=== PATIENT | female | born 2005 | race African-American/Black ===

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

== ENCOUNTER 2025-02-07 11:17 | Emergency (ER) | payer OTHER, SELFPAY ==
--- NOTE | ~2025-02-07 | CT_ITS ---
EXAMINATION: CT abdomen pelvis w con DATE: 02/07/2025 12:22 INDICATION: Abdominal pain TECHNIQUE: Computed tomography (CT) of the abdomen and pelvis was performed with 100 mL Omnipaque-350 intravenous contrast. The dose Wale The dose-length product was 211.01 mGy-cm. COMPARISON: 10/21/2022 FINDINGS: Lung bases are clear. Large inferior heart is normal. No pericardial or pleural effusion. No interval change in a geographic region of focal hepatic steatosis along the ligamentum teres. Gallbladder, sp joanne, pancreas, bilateral adrenal glands and kidneys are normal. Normal appendix. Again seen is diffu se mild fatty infiltration of the colonic wall likely related to body habitus. Bowels are otherwise u nremarkable no obstruction. 2.4 cm right adnexal cyst/dominant follicle. Left adnexa, anteverted uter us and partially decompressed bladder are normal. Minimal likely physiologic free fluid at the cul-de -sac. No abscess or free intraperitoneal gas. No pathologically enlarged abdominal or pelvic lymphade nopathy. Mild lumbar levocurvature. IMPRESSION: 1. 2.4 cm right adnexal cyst/dominant follicle and minimal amount of likely physiologic free fluid in the cul-de-sac. No other acute intra-abdominal/pelvic process. Reviewed, dictated and finalized at location A. IMPRESSION: 1. 2.4 cm right adnexal cyst/dominant follicle and minimal amount of likely phy siologic free fluid in the cul-de-sac. No other acute intra-abdominal/pelvic pr ocess.
--- NOTE | ~2025-02-07 | XR_ITS ---
EXAMINATION: XR chest 1V portable 02/07/2025 12:23 INDICATION: Abdominal pain PROCEDURE: AP view of the chest COMPARISON: FINDINGS: The lungs are clear. The cardiomediastinal silhouette is within normal limits. There are no pleural effusions. There is no pneumothorax suspected. IMPRESSION: 1: NO ACUTE CARDIOPULMONARY DISEASE. Reviewed, dictated and finalized at location A.
--- NOTE | 2025-02-07 11:19 | ECG_ITS ---
Test Date: 2025-02-07 11:42:08 Measurements Intervals [place] Rate: 70 P: 80 [place]: 127 QRS: 85 QRSD: 80 T: 58 QT: 366 QTc: 396 Interpretive Statements SINUS RHYTHM NORMAL ECG No previous ECG available for comparison Electronically Signed On 02-07-2025 12:32:09 CDT by Jose Maxwell D.O.
[2025-02-07 11:21] VITALS: BP 119/72; PULSE 82; RESP 16; TEMP 36.9; O2SAT 98
--- OUTSIDE RECORDS SUMMARY | 2025-02-07 11:36 | XMS_ITS | Clinical Summary ---
Author Organization [facility] Address [address] [place] [id number] Care Team Providers Care Forwarder Operator Name Role Phone Cathy Manning MD Primary Care Provider [phone]- [phone] Allergies No known active allergies Medications ondansetron (ZOFRAN-ODT) 4 MG disintegrating tablet TAKE 4 MILLIGRAMS ORAL NEEDED TWICE A DAY Active Active Problems Comments Yes No known active problems Family History Medical History Relation Comments No Known Problems Father Hypertension Mother Thyroid Disease Mother Relation Status Comments Father Mother Alive Social History Tobacco Use Types Packs/Day Years Used Date Smoking Tobacco: Never Smokeless Tobacco: Never Tobacco Cessation:Counseling Given: Not Answered Alcohol Use Standard Drinks/Week Comments Never 0 (1 standard drink = 0.6 oz pur e alcohol) Comments Yes Sex and Gender Information Value Date Recorded Sex Assigned at Female 08/26/2024 2:37 PM FARM APPRAISER Legal Sex Female 5:58 PM FARM APPRAISER Gender Identity Not on file Sexual Orientation Not on file Last Filed Vital Signs Vital Sign Reading Time Taken Comments Blood Pressure 127/79 08/26/2024 6:05 PM FARM APPRAISER Pulse 94 08/26/2024 2:25 PM FARM APPRAISER Temperature 36.7 C (98 F) 08/26/2024 2:25 PM FARM APPRAISER Respiratory Rate 16 08/26/2024 2:25 PM FARM APPRAISER Oxygen Saturation 100% 08/26/2024 6:10 PM FARM APPRAISER Inhaled Oxygen Concentration - - Weight 66 kg (145 lb 9.6 oz) 08/26/2024 2:25 PM FARM APPRAISER Height 162.6 cm (5' 4) 08/26/2024 2:25 PM FARM APPRAISER Body Mass Index 24.99 08/26/2024 2:25 PM FARM APPRAISER Plan of Treatment Health Maintenance Due Date Last Done Comments Annual Physical 2007 Chlamydia Screening Females ages 16-24 2020 Meningococcal B Vaccine (1 of 2 - Standard) 2020 Hepatitis C 2022 COVID-19 Vaccine (2 - season) 2024 07/04/2021 DTaP, Tdap and Td Vaccines (6 - Td or Tdap) 01/20/2026 01/21/2016, 04/19/2007, 07/02/2005, Additional history exists RSV Immunization or 60+ Years (1 - 1-dose 75+ series) 2079 Hepatitis B Vaccines Completed 04/19/2007, 2004, 2004, Additional history exists Pneumococcal Vaccine: Pediatrics (0 to 5 Years) and At-Risk Patients (6 to 49 Years) Aged Out 04/19/2007, 07/02/2005, 01/29/2005, Additional history exists No longer eligible based on patient's age to complete this topic Meningococcal Vaccine Aged Out 01/21/2016 No kedar víctor eligible based on patient's age to complete this topic HPV Vaccines Completed 09/29/2016, 01/21/2016 RSV Immunizations Under 20 Months Aged Out No longer eligible based on patient's age to complete this topic Insurance Care Teams Forwarder Operator Relationship Specialty Start Date End Date Cathy Manning MD [address] [place] [phone] PCP - General FAMILY PRACTICE 08/26/24
[2025-02-07 11:47] LABS: Hematocrit 37.4 % (35.0-49.0); Hemoglobin 12.7 g/dL (12.0-15.0); Immature Granulocyte Percent A 0.4 % (0.0-0.0); Lymphocytes Absolute Auto 2.52 K/mm3 (1.10-4.50); Mean Corpuscular HGB Conc 34.0 g/dL (32-36); Mean Corpuscular Hemoglobin 28.9 pg (27.0-31.0); Mean Corpuscular Volume 85.0 fL (78.0-102.0); Nucleated Red Blood Cells Absolute Auto 0.00 K/mm3 (0.00-0.00); Nucleated Red Blood Cells Perc 0.0 % (0-0.0); Platelet Count Result 383 K/mm3 (150-420); Red Blood Count 4.40 M/mm3 (4.20-5.40); White Blood Count 17.0 K/mm3 (4.8-10.8)
[2025-02-07 11:57] LABS: Alanine Aminotransferase 12 U/L (6-35); Albumin Level 4.0 g/dL (3.5-5.1); Alkaline Phosphatase 60 U/L (38-126); Anion Gap 4 mmol/L (4-12); Aspartate Amino Transferase 19 U/L (14-36); Bilirubin,Total 0.5 mg/dL (0.2-1.3); Blood Urea Nitrogen 6 mg/dL (7-17); Calcium 9.0 mg/dL (8.4-10.2); Carbon Dioxide 26 mmol/L (22-30); Chloride 108 mmol/L (98-107); Estimated CRCL calculation 137 ml/min; Estimated Glomerular Filt Rate > 60; Glucose 102 mg/dL (65-110); Lipase 39 U/L (23-300); Osmolality Calculated 283 mOsm/kg (285-295); Potassium 3.8 mmol/L (3.4-5.0); Sodium 138 mmol/L (137-145); Total Protein 6.5 g/dL (6.3-8.2)
[2025-02-07 12:00] LABS: INR 0.9; Partial Thromboplastin Time 25.2 Sec (23.9-30.70); Prothrombin Time 10.3 Seconds (9.50-12.1)
[2025-02-07 12:01] LABS: Add Urine Microscopic? NO; Appearance Urine Clear (Clear); Glucose Urine UA Negative (Negative); Leukocyte Esterase Ur Negative LEU/UL (Negative); Nitrate Urine Negative (Negative); Specific Grav Ur 1.015 (1.010-1.020)
--- OUTSIDE RECORDS SUMMARY | 2025-02-07 12:02 | XMS_ITS | Clinical Summary ---
Author Organization [facility] Address [address] [place] [id number] Care Team Providers Care Terminal Supervisor Name Role Phone Cathy Manning MD Primary Care Provider +1- [phone] Allergies No known active allergies Medications ondansetron [...] Sex Assigned at Female 08/26/2024 2:37 PM STRESS ENGINEER Legal Sex Female 5:58 PM STRESS ENGINEER Gender Identity Not on file Sexual Orientation Not on file Last Filed Vital Signs Vital Sign Reading Time Taken Comments Blood Pressure 127/79 08/26/2024 6:05 PM STRESS ENGINEER Pulse 94 08/26/2024 2:25 PM STRESS ENGINEER Temperature 36.7 C (98 F) 08/26/2024 2:25 PM STRESS ENGINEER Respiratory Rate 16 08/26/2024 2:25 PM STRESS ENGINEER Oxygen Saturation 100% 08/26/2024 6:10 PM STRESS ENGINEER Inhaled Oxygen Concentration - - Weight 66 kg (145 lb 9.6 oz) 08/26/2024 2:25 PM STRESS ENGINEER Height 162.6 cm (5' 4) 08/26/2024 2:25 PM STRESS ENGINEER Body Mass Index 24.99 08/26/2024 2:25 PM STRESS ENGINEER Plan of Treatment Health Maintenance Due Date [...] to complete this topic Insurance Care Teams Terminal Supervisor Relationship Specialty Start Date End Date Cathy Manning MD [address] [place] [phone] PCP - General FAMILY PRACTICE 08/26/24
[2025-02-07 12:05] LABS: Pregnancy On Board Control Positive
[2025-02-07 12:09] LABS: Troponin I < 0.012 ng/mL (0.000-0.034)
[2025-02-07] MEDS: KETOROLAC 30 MG/ML VIAL (*BKC) IV PUSH (12:29)
[2025-02-07] MEDS: SODIUM CHLORIDE 0.9% IV 1,000 ML 999 ML IV CONT (12:29)
[2025-02-07] MEDS: ONDANSETRON INJ 4 MG/2 ML VIAL IV PUSH (12:29)
--- NOTE | 2025-02-07 12:53 | ED_ITS ---
HPI - Abdominal Pain General Chief Complaint: Abdominal Pain Stated Complaint: abdominal pain Time Seen by Provider: 02/07/25 11:19 Source: patient and EMS Mode of arrival: ambulatory Limitations: no limitations History of Present Illness HPI narrative: this is a 19-year-old female with no significant past medical history that presents with abdominal pain via EMS with some nausea with no diarrhea constipation no flank pain no dysuria no chest pain no shortness of breath no fever chills. Pain started yesterday and has been off and on/intermittent since then. MD elicited complaint: abdominal pain Pertinent past history: none Onset (ago): day(s) Pain Consistency: intermittent Location: diffuse Severity: moderate Pain scale (0-10): 6 Quality: aching Migration to: no migration Exacerbating factors: nothing Relieving factors: nothing Related Data Allergies Allergy/AdvReac Type Severity Reaction Status Date / Time No Known Allergies Allergy Verified 10/21/22 18:56 Review of Systems 2 Review of Systems: All systems reviewed & are unremarkable except as noted in HPI and below PMFSH Past Medical History Medical History Patient denies medical problems Exam 2 Const: General: healthy appearing and no acute distress Nutritional Appearance: well nourished Orientation/consciousness: patient oriented x3 Limitations: no limitations Neck: Neck: normal visual inspection and no lymphadenopathy Chest: Chest palpation & inspection: normal inspection of the chest Resp: Effort & Inspection: normal respiratory effort Auscultation: clear to auscultation bilaterally Cardio: Rate: regular rate Rhythm: regular rhythm GI: GI Palp: Yes Soft to palpation and Yes Tenderness to palpation present (GI) Auscultation: normal bowel sounds : General: Yes bladder normal to palpation Urinary Catheter: Urinary Catheter: patent and draining Skin: General skin exam: normal color Rashes: no rashes Neuro: General: patient oriented x3, moves all extremities, no meningeal signs and no focal motor deficits Extrem: General: normal to inspection and no clubbing, cyanosis or edema Psych: Mental Status: mental status grossly normal Course Course Emergency Course: She had blood work that was essentially within normal range, chest x-ray no acute cardiopulmonary abnormality CT scan shows some follicular cyst with physiological fluid. Patient received Toradol, IV fluids and IV Zofran and after reassess patient symptoms have improved. Vital Signs Vital signs: Vital Signs Temperature 36.9 C 02/07/25 11:21 Pulse Rate 82 02/07/25 11:21 Respiratory Rate 16 02/07/25 11:21 Blood Pressure 119/72 02/07/25 11:21 Pulse Oximetry 98 02/07/25 11:21 Oxygen Delivery Room Air 02/07/25 11:21 Temperature 36.9 C 02/07/25 11:21 Pulse Rate 82 02/07/25 11:21 Respiratory Rate 16 02/07/25 11:21 Blood Pressure 119/72 02/07/25 11:21 Pulse Oximetry 98 02/07/25 11:21 Oxygen Delivery Room Air 02/07/25 11:21 MDM - Abdominal Pain Lab Data 02/07/25 11:34 02/07/25 11:34 Labs: Lab Results 02/07/25 02/07/25 Range/Units 11:34 11:57 WBC 17.0 H (4.8-10.8) K/mm3 RBC 4.40 (4.20-5.40) M/mm3 Hgb 12.7 (12.0-15.0) g/dL Hct 37.4 (35.0-49.0) % MCV 85.0 (78.0-102.0) fL MCH 28.9 (27.0-31.0) pg MCHC 34.0 (32-36) g/dL RDW 13.8 (11.6-14.4) % Plt Count 383 (150-420) K/mm3 MPV 10.1 (9.2-11.8) fl Immature Gran % (Auto) 0.4 H (0.0-0.0) % Neut % (Auto) 78.1 H (50.0-70.0) % Lymph % (Auto) 14.8 L (18.0-42.0) % Dickson % (Auto) 4.5 (2.0-11.0) % Eos % (Auto) 1.6 (1.0-6.0) % Baso % (Auto) 0.6 (0.0-1.0) % Lymph # (Auto) 2.52 (1.10-4.50) K/mm3 Dickson # (Auto) 0.76 (0.10-0.90) K/mm3 Eos # (Auto) 0.27 (0.02-0.50) K/mm3 Baso # (Auto) 0.10 (0.00-0.10) K/mm3 Abs Immat Gran (auto) 0.06 H (0.00-0.00) K/mm3 Absolute Neuts (auto) 13.26 H (1.70-7.20) K/mm3 Absolute Nucleated RBC 0.00 (0.00-0.00) K/mm3 Nucleated RBC % 0.0 (0-0.0) % PT 10.3 (9.50-12.1) Seconds INR 0.9 APTT 25.2 (23.9-30.70) Sec Sodium 138 (137-145) mmol/L Potassium 3.8 (3.4-5.0) mmol/L Chloride 108 H (98-107) mmol/L Carbon Dioxide 26 (22-30) mmol/L Anion Gap 4 (4-12) mmol/L BUN 6 L (7-17) mg/dL Creatinine 0.47 L (0.7-1.0) mg/dL Estim Creat Clear Calc 137 ml/min Estimated GFR > 60 (59 - ) Glucose 102 (65-110) mg/dL Calculated Osmolality 283 L (285-295) mOsm/kg Lactic Acid 0.8 (0.4-2.0) mmol/L Calcium 9.0 (8.4-10.2) mg/dL Total Bilirubin 0.5 (0.2-1.3) mg/dL AST 19 (14-36) U/L ALT 12 (6-35) U/L Alkaline Phosphatase 60 (38-126) U/L Troponin I < 0.012 (0.000-0.034) ng/mL Total Protein 6.5 (6.3-8.2) g/dL Albumin 4.0 (3.5-5.1) g/dL Lipase 39 (23-300) U/L Urine Color Light yellow (Yellow) Urine Appearance Clear (Clear) Urine pH 7.5 (5.0-8.0) Ur Specific Frank[place]muth 1.015 (1.010-1.020) Urine Protein Negative (Negative) Urine Glucose (UA) Negative (Negative) Urine Ketones Negative (Negative) Ur Blood (Man) Negative (Negative) Urine Nitrate Negative (Negative) Urine Bilirubin Negative (Negative) Urine Urobilinogen 0.2 (0.2-1.0) mg/dL Leukocyte Esterase Rfl Negative (Negative) OWEN/UL Urine Test Negative Imaging Data Radiologist's impression: ITS Impressions Abdomen/Pelvis CT 02/07/25 12:27 IMPRESSION: 1. 2.4 cm right adnexal cyst/dominant follicle and minimal amount of likely physiologic free fluid in the cul-de-sac. No other acute intra-abdominal/pelvic process. Chest X-Ray 02/07/25 12:32 IMPRESSION: 1: NO ACUTE CARDIOPULMONARY DISEASE. Critical Care Time Critical Care Time Critical Care Time: No Discharge Plan Discharge Clinical Impression: Ovarian cyst Qualifiers: Laterality: unspecified laterality Qualified Code(s): N83.209 - Unspecified ovarian cyst, unspecified side Patient Disposition: Home Condition: Stable Instructions: Antibiotic Form, Ruptured Ovarian Cyst (ED) Additional Instructions: advised patient to take medication as prescribed and to follow with primary within the next 3 to 5 days for further evaluation and treatment. Patient Language: Mongolian Prescriptions: New naproxen 500 mg tablet 500 mg PO BID PRN (Reason: pain) Qty: 14 0RF ondansetron 4 mg tablet,disintegrating 4 mg PO Q6H PRN (Reason: nausea and vomiting) Qty: 14 0RF Follow-up/Referrals: Kerri,Cathy Morales MD [Primary Care Provider] - Time of Disposition: 12:57
[2025-02-07 13:08] VITALS: BP 123/68; PULSE 62; RESP 18; TEMP 36.1; O2SAT 100
--- NOTE | 2025-02-09 05:10 | PC.NURSE ---
Spoke with Nataliia (slab lifting engineer), stated that patient blood cultures 1 of 2 bottles positive for gram positive cocci- aerobic bottle. Spoke with Dr. Burk about patient positive blood culture, states to wait until results finalize before any further treatment as it sounds that this may be a contaminate.
--- NOTE | 2025-02-10 12:29 | PC.NURSE ---
Preliminary blood culture report; gram positive cocci, will wait for final culture and sensitivity per ERP Dr. Gann.
--- NOTE | 2025-02-11 13:46 | PC.NURSE ---
BLOOD CULTURE PRELIMINARY RESULT: STAPHYLOCOCCUS EPIDERMIDIS - final results pending
--- NOTE | 2025-02-12 13:11 | PC.NURSE ---
preliminary blood cultures reviewed. staph epidermidis isolated in aerobic bottle only
--- NOTE | 2025-02-13 13:05 | PC.NURSE ---
right hand blood culture reviewed, staph epidermidis.
--- NOTE | 2025-02-13 18:56 | PC.NURSE ---
blood culture reviewed per dr padilla, follow up with family doctor, no antibiotic needed, attempted to call spouse number on facesheet as that is the only number available. states unknown how to contact pt. does not speak to her.
== END 2025-02-07 13:11 | disposition home or self-care (01) ==
PROVIDERS: Emergency Provider Emergency Medicine; PCP Family Medicine
DX: N83.209 Unspecified ovarian cyst, unspecified side (principal)
CPT/HCPCS: 36415; 71045; 74177; 80053; 81003; 81025; 83605; 83690; 84484; 85025; 85610; 85730; 87040; 87186; 93005; 96361; 96374; 96375; 99284; J1885; J2405; J7030; Q9967

== ENCOUNTER 2025-05-17 10:25 | Emergency (ER) | payer SELFPAY ==
[2025-05-17] VITALS (14 sets, daily range): BP systolic 112–130; BP diastolic 80–92; PULSE 72–107; RESP 16–20; TEMP 36.9; O2SAT 96–100
--- NOTE | ~2025-05-17 | XR_ITS ---
EXAMINATION: XR abdomen obstructive series DATE: 05/17/2025 11:57 INDICATION: Abdominal pain and constipation TECHNIQUE: Frontal supine and upright views of the abdomen were obtained. COMPARISON: None. FINDINGS: Small amount of stool scattered throughout the colon. No dilated loops of gas- filled bowel to suggest obstruction. No suspicious calcifications in the abdomen or pelvis. No free intraperitoneal gas. Visualized lung bases are clear. Heart size is normal. Mild lumbar levocurvature. IMPRESSION: 1. No free intraperitoneal gas or dilated gas-filled loops of bowel to suggest obstruction. Reviewed, dictated and finalized at location A. R FABRICATOR
--- NOTE | 2025-05-17 10:26 | ED.ABDPAIN ---
HPI - Abdominal Pain General Chief Complaint: Abdominal Pain Stated Complaint: abdominal pain Time Seen by Provider: 05/17/25 10:26 Source: patient Mode of arrival: ambulatory Limitations: no limitations History of Present Illness HPI narrative: Patient is a 19-year-old female with abdominal pain throughout the abdomen and has been constipated for the past 3 days. MD elicited complaint: abdominal pain Pertinent past history: constipation Onset (ago): day(s) (Three) Pain Consistency: intermittent Location: diffuse Severity: mild Pain scale (0-10): 2 Quality: cramping Radiation: none Migration to: no migration Exacerbating factors: nothing Relieving factors: nothing Context: confirms other (Patient has been constipated for the past 3 days and having some associated abdominal pain and occasional nausea) Associated symptoms: nausea and constipation Treatments prior to arrival: other (None) Related Data Allergies Allergy/AdvReac Type Severity Reaction Status Date / Time No Known Allergies Allergy Verified 10/21/22 18:56 Review of Systems Review of Systems: All systems reviewed & are unremarkable except as noted in HPI and below Constitutional: Constitutional: Reports no additional constitutional complaints Eyes: Eyes: Reports no additional eye complaints ENT: Reports system reviewed and no additional complaints, except as documented Cardiovascular: Cardiovascular: Reports no additional cardiovascular complaints Respiratory: Respiratory: Reports no additional respiratory complaints Gastrointestinal: Gastrointestinal: Reports no additional gastrointestinal complaints Genitourinary: Genitourinary: Reports no additional female genitourinary complaints Musculoskeletal: Musculoskeletal: Reports no additional musculoskeletal complaints Integumentary/Breasts: Skin/Breast: Reports system reviewed and no additional complaints, except as docu Neurologic: Reports system reviewed and no additional complaints, except as documented Psychiatric: Psychiatric: Reports no additional psychiatric complaints Endocrine: Endocrine: Reports no additional endocrine complaints Hematologic/Lymphatic: Hematologic/Lymphatic: Reports no additional hematologic/lymphatic complaints Allergic/Immunologic: Allergic/Immunologic: Reports no additional allergic/immunologic complaints PMFSH Past Medical History Medical History Patient denies medical problems Exam Const: General: healthy appearing Nutritional Appearance: well nourished Orientation/consciousness: patient oriented x3 HENMT: Head: normal to inspection Ears: external ears normal Face/Nose/Sinus: Normal external nose present Eyes: Conjunctivae: conjunctivae normal Pupils: Equal, round and reactive pupils present EOM: EOMs intact bilaterally Neck: Neck: normal visual inspection Chest: Chest palpation & inspection: normal inspection of the chest Resp: Effort & Inspection: normal respiratory effort and not labored Auscultation: clear to auscultation bilaterally and no crackles Cardio: Rate: regular rate Rhythm: regular rhythm Heart sounds: no murmurs GI: Inspection: distended GI Palp: Yes Soft to palpation, Yes Tenderness to palpation present (GI) (Diffuse), No Guarding due to palpation present (GI), No Rigid due to palpation, No Hernia present, No Palpable mass present and No Rebound tenderness present Auscultation: Hypoactive bowel sounds present : General: Yes bladder normal to palpation Back/Spine/Pelvis: Back: no CVA tenderness Skin: General skin exam: normal color Rashes: no rashes Wounds: no wounds Neuro: General: patient oriented x3, moves all extremities and no meningeal signs Extrem: General: normal to inspection, no clubbing, cyanosis or edema and no pedal edema Psych: Mental Status: mental status grossly normal Affect: normal affect Attitude: cooperative Course Vital Signs Vital signs: Vital Signs Temperature 36.9 C 05/17/25 10:25 Pulse Rate 80 05/17/25 10:25 Respiratory Rate 16 05/17/25 10:25 Blood Pressure 130/86 05/17/25 10:25 Pulse Oximetry 98 05/17/25 10:25 Oxygen Delivery Room Air 05/17/25 10:25 Temperature 36.9 C 05/17/25 10:25 Pulse Rate 74 05/17/25 13:15 Respiratory Rate 20 05/17/25 13:15 Blood Pressure 114/92 H 05/17/25 13:15 Pulse Oximetry 100 05/17/25 13:16 Oxygen Delivery Room Air 05/17/25 13:15 MDM - Abdominal Pain MDM Narrative Medical decision making narrative: Patient is a 19-year-old female with some abdominal pain and constipation for the past 3 days. We will check abdominal obstructive series x-rays. Pain self resolved during her stay in the emergency room. Lab Data Attestation: I reviewed the patient's lab results. Labs: Lab Results 05/17/25 05/17/25 Range/Units 10:59 11:09 Urine Color Yellow (Yellow) Urine Appearance Clear (Clear) Urine pH 6.0 (5.0-8.0) Ur Specific [place] 1.025 H (1.010-1.020) Urine Protein Negative (Negative) Urine Glucose (UA) Negative (Negative) Urine Ketones 2+ H (Negative) Ur Blood (Man) Negative (Negative) Urine Nitrate Negative (Negative) Urine Bilirubin Negative (Negative) Urine Urobilinogen 1.0 (0.2-1.0) mg/dL Leukocyte Esterase Rfl Negative (Negative) OWEN/UL Urine Test Negative Imaging Data Attestation: I personally reviewed and interpreted this imaging study as follows: Radiologist's impression: ITS Impressions Abdomen X-Ray 05/17/25 12:04 IMPRESSION: 1. No free intraperitoneal gas or dilated gas-filled loops of bowel to suggest obstruction. Discharge Plan Discharge Clinical Impression: Constipation Qualifiers: Constipation type: unspecified constipation type Qualified Code(s): K59.00 - Constipation, unspecified Patient Disposition: Home Condition: Improved Instructions: Constipation (DC), Abdominal Pain (ED) Additional Instructions: Please go to [facility] or [facility] and get magnesium citrate bottle and drink half the bottle and wait 4 hours to see bowel movement. No bowel movement, drink the other half the bottle. I suggest a stool softener such as Colace as well. Please come back to the emergency room with any continued or worsening pain. Patient Language: Mongolian Prescriptions: No Action naproxen 500 mg tablet 500 mg PO BID PRN (Reason: pain) Qty: 14 0RF ondansetron 4 mg tablet,disintegrating 4 mg PO Q6H PRN (Reason: nausea and vomiting) Qty: 14 0RF naproxen 500 mg tablet 500 mg PO BID PRN (Reason: pain) Qty: 14 0RF ondansetron 4 mg tablet,disintegrating 4 mg PO Q6H PRN (Reason: nausea and vomiting) Qty: 14 0RF Follow-up/Referrals: Kerri,Cathy Morales MD [Primary Care Provider, Unknown] Time of Disposition: 13:27
--- OUTSIDE RECORDS SUMMARY | 2025-05-17 10:28 | XMS_ITS | Clinical Summary ---
Author Organization [facility] Address [address] [place] [id number] Care Team Providers Care Transit Coach Operator Name Role Phone Cathy Manning MD Primary Care Provider +1- [phone] Allergies No known active allergies Medications ondansetron [...] Sex Assigned at Female 08/26/2024 2:37 PM ANALYST SALES Legal Sex Female 5:58 PM ANALYST SALES Gender Identity Not on file Sexual Orientation Not on file Last Filed Vital Signs Vital Sign Reading Time Taken Comments Blood Pressure 127/79 08/26/2024 6:05 PM ANALYST SALES Pulse 94 08/26/2024 2:25 PM ANALYST SALES Temperature 36.7 C (98 F) 08/26/2024 2:25 PM ANALYST SALES Respiratory Rate 16 08/26/2024 2:25 PM ANALYST SALES Oxygen Saturation 100% 08/26/2024 6:10 PM ANALYST SALES Inhaled Oxygen Concentration - - Weight 66 kg (145 lb 9.6 oz) 08/26/2024 2:25 PM ANALYST SALES Height 162.6 cm (5' 4) 08/26/2024 2:25 PM ANALYST SALES Body Mass Index 24.99 08/26/2024 2:25 PM ANALYST SALES Plan of Treatment Health Maintenance Due Date Last Done Comments Annual Physical 2007 Hepatitis A Vaccines (2 of 2 - 2-dose series) 07/23/2016 01/21/2016 Chlamydia Screening Females ages 16-24 2020 Meningococcal B Vaccine (1 of 2 - Standard) 2020 Hepatitis C 2022 COVID-19 Vaccine (2 - season) 2025 07/04/2021 Influenza Adult (#1) 2025 05/09/2017, 03/27/2017, 09/29/2016, Additional history exists DTaP, Tdap and Td Vaccines (6 - [...] patient's age to complete this topic Insurance [facility] MEDICAID Care Teams Transit Coach Operator Relationship Specialty Start Date End Date Cathy Manning MD [address] [place] [phone] PCP - General FAMILY PRACTICE 08/26/24
--- OUTSIDE RECORDS SUMMARY | 2025-05-17 11:02 | XMS_ITS | Clinical Summary ---
Author Organization [facility] Address [address] [place] [id number] Care Team Providers Care Paint Roller Winder Name Role Phone Cathy Manning MD Primary Care Provider +1- [phone] Allergies No known active allergies Medications ondansetron [...] Sex Assigned at Female 08/26/2024 2:37 PM DISTILLERY WORKER GENERAL Legal Sex Female 5:58 PM DISTILLERY WORKER GENERAL Gender Identity Not on file Sexual Orientation Not on file Last Filed Vital Signs Vital Sign Reading Time Taken Comments Blood Pressure 127/79 08/26/2024 6:05 PM DISTILLERY WORKER GENERAL Pulse 94 08/26/2024 2:25 PM DISTILLERY WORKER GENERAL Temperature 36.7 C (98 F) 08/26/2024 2:25 PM DISTILLERY WORKER GENERAL Respiratory Rate 16 08/26/2024 2:25 PM DISTILLERY WORKER GENERAL Oxygen Saturation 100% 08/26/2024 6:10 PM DISTILLERY WORKER GENERAL Inhaled Oxygen Concentration - - Weight 66 kg (145 lb 9.6 oz) 08/26/2024 2:25 PM DISTILLERY WORKER GENERAL Height 162.6 cm (5' 4) 08/26/2024 2:25 PM DISTILLERY WORKER GENERAL Body Mass Index 24.99 08/26/2024 2:25 PM DISTILLERY WORKER GENERAL Plan of Treatment Health Maintenance Due Date [...] patient's age to complete this topic Insurance [facility] MEDICAID Care Teams Paint Roller Winder Relationship Specialty Start Date End Date Cathy Manning MD [address] [place] [phone] PCP - General FAMILY PRACTICE 08/26/24
[2025-05-17 11:15] LABS: Add Urine Microscopic? NO; Appearance Urine Clear (Clear); Glucose Urine UA Negative (Negative); Leukocyte Esterase Ur Negative LEU/UL (Negative); Nitrate Urine Negative (Negative); Specific Grav Ur 1.025 (1.010-1.020)
[2025-05-17 11:20] LABS: Pregnancy On Board Control Positive
== END 2025-05-17 13:36 | disposition home or self-care (01) ==
PROVIDERS: Emergency Provider Emergency Medicine; PCP Family Medicine
DX: K59.00 Constipation, unspecified (principal)
CPT/HCPCS: 74019; 81003; 81025; 99283